=== PATIENT | male | born 1950 | race Hispanic/Latino ===

== ENCOUNTER → 2017-02-26 | Outpatient (CLI) | payer OTHER | END | disposition home or self-care (01) | LOC: SHCH 12:50 | PROVIDERS: ATTEND Internal Medicine Cardiovascular Disease | DX: R07.9 Chest pain, unspecified (principal) | CPT/HCPCS: 93306 ==

== ENCOUNTER → 2019-05-25 | Outpatient (CLI) | payer OTHER | END | disposition home or self-care (01) | LOC: RAH 09:02 | PROVIDERS: ATTEND Internal Medicine Cardiovascular Disease | DX: I25.9 Chronic ischemic heart disease, unspecified (principal); R06.00 Dyspnea, unspecified | CPT/HCPCS: 78452; 93017; 96374; A9500 ×2 ==

== ENCOUNTER 2019-11-29 05:55 | Day surgery (SDC) | payer OTHER ==
[2019-11-25 12:27] LABS: APPEARANCE,URINE Clear (CLEAR); BASOPHILS % (AUTO) 0.5 % (0.0-5.0); BILIRUBIN,URINE Negative (NEGATIVE); COLOR,URINE Yellow (YELLOW); EOSINOPHILS % (AUTO) 1.9 % (0.0-8.0); GLUCOSE, URINE (UA) Negative (NEGATIVE); HEMATOCRIT 33.2 % (42-54); KETONES,URINE Negative (NEGATIVE); LEUKOCYTE ESTERASE ,URINE Negative (NEGATIVE); LYMPHOCYTES % (AUTO) 30.3 % (21.0-51.0); MEAN CORPUSCULAR HEMOGLOBIN 32.4 pg (27.0-33.0); MEAN CORPUSCULAR HGB CONC 33.4 g/dL (32.0-36.0); MEAN CORPUSCULAR VOLUME 96.8 fL (79-99); MONOCYTES % (AUTO) 9.6 % (3.0-13.0); NEUTROPHILS % (AUTO) 57.4 % (40.0-77.0); NITRATE,URINE Negative (NEGATIVE); OCCULT BLOOD,URINE Negative (NEGATIVE); PLATELET COUNT (AUTO) 220 K/uL (130-400); PROTEIN,URINE Negative (NEGATIVE); RED BLOOD CELL COUNT(AUTO) 3.43 MIL/uL (4.50-6.20); RED CELL DISTRIBUTION WIDTH 13.2 % (11.0-15.5); UROBILINOGEN,URINE 0.2 mg/dL (0.2-1.0); WHITE BLOOD COUNT (AUTO) 6.3 K/uL (4.8-10.8)
[2019-11-25 12:36] LABS: CREATININE 1.6 mg/dL (0.5-1.5); POTASSIUM 4.6 mmol/L (3.5-5.1)
[2019-11-25 12:42] LABS: INR 0.91 (0.85-1.15); PROTHROMBIN TIME 9.9 SEC (9.6-11.6)
--- NOTE | 2019-11-28 11:02 | NUR ---
Called [facility] and advised her of na of 134, bun 30, food packer 1.6, new orders to hold valsartan/hctz, start ns at 100cc hr and if blood pressure too high morning of procedure, need to call md for orders.
[2019-11-29] VITALS (15 sets, daily range): BP systolic 101–172; BP diastolic 48–73
[~2019-11-29] VITALS: Ht 172.7 cm; Wt 86.2 kg
[~2019-11-29 05:55] MED LIST: AMLO5TAB9 PO; ASCO1TAB40 PO; ASPI-1443 PO; ATOR40TA71 PO; METO-408 PO; MULT-1367 PO; VALS1TAB81 PO
[2019-11-29] MEDS ORDERED: SODIUM CHLORIDE 0.9% 1000ML 1,000 ML IV SCH ×2 (06:00→09:00)
[2019-11-29] MEDS ORDERED: AMLODIPINE BESYLATE 5 MG TAB ONE (06:50)
[2019-11-29] MEDS ORDERED: HYDRALAZINE HCL 20 MG/ML VIAL ONE (06:51)
[2019-11-29] MEDS ORDERED: HYDRALAZINE HCL 20 MG/ML VIAL IV PRN (07:15)
[2019-11-29] MEDS ORDERED: AMLODIPINE BESYLATE 5 MG TAB PO ONE (07:15)
[2019-11-29] MEDS ORDERED: IOHEXOL 350 MG/ML 100ML INFUS..BTL IV ONE (07:16)
[2019-11-29] MEDS ORDERED: HEPARIN SODIUM 1000UNIT/ML 10ML VIAL ONE (07:16)
[2019-11-29] MEDS ORDERED: IOHEXOL-350 50ML VIAL IV ONE ×2 (07:16→08:31)
[2019-11-29] MEDS ORDERED: LIDOCAINE HCL 2% 20ML ONE (07:16)
[2019-11-29] MEDS ORDERED: NITROGLYCERIN 2 MG/VIAL VIAL IV ONE (07:16)
[2019-11-29] MEDS ORDERED: MIDAZOLAM HCL 1 MG/ML 2ML VIAL ONE (08:17)
[2019-11-29] MEDS ORDERED: LABETALOL HCL 5 MG/ML 20ML VIAL IV ONE (08:19)
[2019-11-29] MEDS ORDERED: NITROGLYCERIN 4.1 GM SPRAY TL ONE (08:23)
--- NOTE | 2019-11-29 16:45 | NUR ---
Pt discharged home. Tolerating solids/fluids well, ambulating well. Denies any pain, nausea, or dizziness. Site to right cath site remains soft, non-tender, dressing clean, dry, and intact. Pt voided prior to going home.
== END 2019-11-29 16:45 | disposition home or self-care (01) ==
LOC: DAH 05:55
PROVIDERS: ATTEND Internal Medicine Cardiovascular Disease
DX: R94.39 Abnormal result of other cardiovascular function study (principal); I25.119 Atherosclerotic heart disease of native coronary artery with unspecified angina pectoris; I13.0 Hypertensive heart and chronic kidney disease with heart failure and stage 1 through stage 4 chronic kidney disease, or unspecified chronic kidney disease; N18.3 Chronic kidney disease, stage 3 (moderate); I50.9 Heart failure, unspecified; D63.1 Anemia in chronic kidney disease; R11.2 Nausea with vomiting, unspecified; E78.5 Hyperlipidemia, unspecified; Z79.01 Long term (current) use of anticoagulants; Z79.899 Other long term (current) drug therapy
CPT/HCPCS: 36415; 71045; 80048; 81003; 85025; 85610; 85730; 93005; 93458; 96360; 96361; 96374; A4215; A4216; A4221; A4222; A4223 ×3; A4606; A4663; C1760; C1894; J0360; J1644; J2250; J3490 ×3; J7030 ×2; Q9965; Q9967 ×2; 99156; 99157

== ENCOUNTER → 2023-01-15 | Outpatient (CLI) | payer OTHER ==
[~2023-01-15] MED LIST changes: +AMLO-257 PO; -AMLO5TAB9 PO; -METO-408 PO
== END | disposition home or self-care (01) ==
LOC: SHCH 07:44
PROVIDERS: ATTEND Internal Medicine Cardiovascular Disease
DX: N28.1 Cyst of kidney, acquired (principal); I70.1 Atherosclerosis of renal artery
CPT/HCPCS: 93975

== ENCOUNTER → 2023-02-09 | Outpatient (CLI) | payer OTHER ==
[2023-02-09 12:16] LABS: CHOLESTEROL 231 mg/dL (<200); HDL CHOLESTEROL 55 mg/dL (29-71); LDL DIRECT 138 mg/dL (0-99); TRIGLYCERIDES 199 mg/dL (30-200)
== END | disposition home or self-care (01) ==
LOC: LAB 09:40
PROVIDERS: ATTEND Internal Medicine Cardiovascular Disease
DX: I10 Essential (primary) hypertension (principal); I25.10 Atherosclerotic heart disease of native coronary artery without angina pectoris; E78.00 Pure hypercholesterolemia, unspecified; I70.1 Atherosclerosis of renal artery
CPT/HCPCS: 36415; 80061